=== PATIENT | male | born 1940 | race Caucasian/White ===

== ENCOUNTER 2016-06-27 10:30 | Emergency (ER) | payer MEDICARE ==
[2016-06-27 11:07] VITALS: BP 119/72
--- NOTE | 2016-06-27 11:39 | UC ---
Respiratory Complaint HPI - HPI Summary HPI Summary: Nasal congestion, cough, and trouble breathing starting last night. Pt used nebulizer once with partial relief. Usually only uses albuterol every few weeks. Denies fever or hx of hospitalization for pneumonia or asthma. - History of Current Complaint Chief Complaint: UCRespiratory Stated Complaint: SINUS COMPLAINT Time Seen by Provider: 06/27/16 11:15 Hx Obtained From: Patient Onset/Duration: Gradual Onset, Lasting Hours Timing: Constant Severity Initially: Mild Severity Currently: Mild Character: Cough: Nonproductive Aggravating Factors: Deep Breaths, Recumbent Position Alleviating Factors: Upright Position Associated Signs And Symptoms: Positive: Wheezing, URI, Nasal Congestion. Negative: Fever, Chills - Allergies/Home Medications Allergies/Adverse Reactions: Allergies Allergy/AdvReac Type Severity Reaction Status Date / Time Penicillins Allergy Nausea Verified 06/27/16 11:07 PMH/Surg Hx/FS Hx/Imm Hx Endocrine History Of: Denies: Diabetes, Thyroid Disease Cardiovascular History Of: Reports: Cardiac Disorders, Hypertension - WELL CONTOLLED Denies: Pacemaker/ICD Respiratory History Of: Reports: Asthma Denies: COPD GI/ History Of: Denies: Ulcer Psychological History Of: Reports: Depression - HX OF - Surgical History Surgical History: Yes Surgery Procedure, Year, and Place: PROSTATECTOMY 1994 [facility] – [place]. PENILE IMPLANT APPROX 1999 - Social History Occupation: Retired Lives: Alone Alcohol Use: Occasionally Substance Use Type: None Smoking Status (MU): Never Smoked Tobacco Review of Systems Constitutional: Negative Skin: Negative Eyes: Negative ENT: Nasal Discharge Respiratory: Shortness Of Breath, Cough Cardiovascular: Negative Gastrointestinal: Negative Genitourinary: Negative Motor: Negative Neurovascular: Negative Musculoskeletal: Negative Neurological: Negative Psychological: Negative All Other Systems Reviewed And Are Negative: Yes Physical Exam Triage Information Reviewed: Yes Appearance: Well-Appearing, No Pain Distress, Well-Nourished Vital Signs: Initial Vital Signs Temp 98.2 F 06/27/16 11:00 Pulse 70 06/27/16 11:00 Resp 20 06/27/16 11:00 BP 119/72 06/27/16 11:00 Pulse Ox 97 06/27/16 11:00 Vital Signs Reviewed: Yes Eye Exam: Normal Eyes: Positive: Conjunctiva Clear ENT: Positive: Pharynx normal, Nasal congestion, TMs normal. Negative: Tonsillar swelling, Tonsillar exudate Dental Exam: Other - dentures Neck exam: Normal Respiratory Exam: Normal Respiratory: Positive: Chest non-tender, Lungs clear, Normal breath sounds, No respiratory distress, No accessory muscle use Cardiovascular Exam: Normal Cardiovascular: Positive: RRR, No Murmur Musculoskeletal Exam: Normal Neurological Exam: Normal Psychological Exam: Normal Skin Exam: Normal UC Diagnostic Evaluation - Laboratory O2 Sat by Pulse Oximetry: 97 Respiratory Course/Dx - Differential Dx/Diagnosis Provider Diagnoses: URI, likely viral Discharge - Discharge Plan Condition: Stable Disposition: HOME Prescriptions: Albuterol HFA INHALER* [Ventolin HFA Inhaler*] 1 - 2 puff INH Q4H PRN #1 mdi PRN Reason: wheeze, cough Patient Education Materials: Upper Respiratory Infection (ED) Referrals: Caio Yadav MD [Primary Care Provider] - 4 Days Additional Instructions: Use either the albuterol inhaler or your nebulizer 4-5 times per day as needed. You may feel a bit worse for the next couple days since your illness just started. Please get seen again if you develop fever over 100.4, increasing trouble breathing (despite your albuterol), or any sudden or dramatic worsening.
== END 2016-06-27 11:46 | disposition home or self-care (01) ==
LOC: UCCORT 10:30
DX: J06.9 Acute upper respiratory infection, unspecified (principal); Z88.0 Allergy status to penicillin
CPT/HCPCS: 99212; G0463

== ENCOUNTER 2018-07-17 02:41 | Emergency (ER) | payer MEDICARE ==
[2018-07-17] MEDS ORDERED: NS 0.9% 1000 ML** 1,000 ML IV.FLUID IV ONE (03:34)
[2018-07-17] MEDS ORDERED: Acetaminophen TAB* 325 MG PO ONE (03:35)
[2018-07-17 04:46] LABS: ABS Basophils 0.1 10^3/ul (0-0.2); ABS Eosinophils 0 10^3/ul (0-0.6); ABS Lymphocytes 0.4 10^3/ul (1.0-4.8); ABS Monocytes 0.8 10^3/ul (0-0.8); ABS Nucleated RBC 0 10^3/ul; Eosinophil % 0.3 %; Hematocrit 43 % (42-52); Hemoglobin 14.2 g/dl (14.0-18.0); Lymphocyte % 6.8 %; Mean Corpuscular HGB Conc 33 g/dl (31-36); Mean Corpuscular Hemoglobin 30 pg (27-31); Mean Corpuscular Volume 90 fL (80-94); Mean Platelet Volume 9.8 fL (7.4-10.4); Nucleated Red Blood Cells % 0; Platelet Count 150 10^3/ul (150-450); Red Blood Count 4.78 10^6/ul (4.00-5.40); Red Cell Distribution Width 14 % (10.5-15); White Blood Count 6.2 10^3/ul (3.5-10.8)
[2018-07-17 04:53] LABS: INR 1.14 (0.77-1.02)
[2018-07-17 05:02] LABS: Albumin 3.8 g/dL (3.2-5.2); Albumin/Globulin Ratio 1.2 (1-3); BUN/Creatinine Ratio 13.6 (8-20); Calcium 9.2 mg/dL (8.6-10.3); EGFR African American 72.2 (>60); EGFR Non-African American 59.7 (>60); Globulin 3.1 g/dL (2-4); Total Bilirubin 0.9 mg/dL (0.2-1.0); Total Protein 6.9 g/dL (6.4-8.9)
[2018-07-17 05:05] LABS: Troponin I 0.02 ng/mL (<0.04)
--- NOTE | 2018-07-17 05:35 | ED ---
Respiratory - HPI Summary HPI Summary: The patient is a 78 y/o M presenting to [facility] with a chief complaint of upper respiratory symptoms since yesterday. He reports rhinorrhea, productive cough, mild fever, sore throat, and mild diffuse abd pain. He denies chills. His pain is rated 7/10 in severity. There are no aggravating or alleviating factors. He has hx of HTN, which is controlled by medication. He has FHx of diabetes. Nonsmoker. - History of Current Complaint Chief Complaint: EDUpperRespComplaint Stated Complaint: "I HAVE A SINUS INFECTION" PER PT Time Seen by Provider: 07/17/18 03:30 Hx Obtained From: Patient Onset/Duration: Sudden Onset, Lasting Hours - since yesterday, Still Present Initial Severity: Mild Current Severity: Moderate Pain Intensity: 7 Character: Cough (Productive) Sputum Amount: Moderate Aggravating Factor(s): Nothing Alleviating Factor(s): Nothing Associated Signs and Symptoms: Fever - mild, Sinus Discomfort - nasal discharge - Allergy/Home Medications Allergies/Adverse Reactions: Allergies Allergy/AdvReac Type Severity Reaction Status Date / Time MS Penicillins [Penicillins] Allergy Nausea Verified 06/27/16 11:07 PMH/Surg Hx/FS Hx/Imm Hx Endocrine/Hematology History: Denies: Hx Diabetes, Hx Thyroid Disease Cardiovascular History: Reports: Hx Hypertension - WELL CONTOLLED Denies: Hx Pacemaker/ICD Respiratory History: Reports: Hx Asthma Denies: Hx Chronic Obstructive Pulmonary Disease (COPD) GI History: Denies: Hx Ulcer Sensory History: Reports: Hx Contacts or Glasses - GLASSES Denies: Hx Hearing Aid Opthamlomology History: Reports: Hx Contacts or Glasses - GLASSES Psychiatric History: Reports: Hx Depression - HX OF Denies: Hx Panic Disorder - Cancer History Cancer Type, Location and Year: prostate - Surgical History Surgery Procedure, Year, and Place[place] [facility] [place] Hx Anesthesia Reactions: No Infectious Disease History: No Infectious Disease History: Denies: Hx Hepatitis, Hx Human Immunodeficiency Virus (HIV), Traveled Outside the [place] in Last 30 Days - Family History Known Family History: Positive: Hypertension Negative: Diabetes - Social History Alcohol Use: Occasionally Substance Use Type: Reports: None Smoking Status (MU): Never Smoked Tobacco Review of Systems Positive: Fever. Negative: Chills Positive: Sore Throat, Nasal Discharge Positive: Cough - productive Positive: Abdominal Pain All Other Systems Reviewed And Are Negative: Yes Physical Exam - Summary Physical Exam Summary: Appearance: Well-appearing, Well-nourished, lying in bed comfortably, low grade fever Skin: Warm, dry, no obvious rash Eyes: sclera anicteric, no conjunctival pallor ENT: mucous membranes moist, pharynx appears normal Neck: Supple, nontender Respiratory: Clear to auscultation, tachypnea Cardiovascular: Tachycardic. No murmurs. Normal distal pulses in tibial and radial bilaterally. Abdomen: Soft, nontender, normal active bowel sounds present Musculoskeletal: Normal, Strength/ROM Intact Neurological: A&Ox3, awake and alert, mentation is normal, speech is fluent and appropriate Psychiatric: affect is normal, does not appear anxious or depressed Triage Information Reviewed: Yes Vital Signs On Initial Exam: Initial Vitals Temp Pulse Resp BP Pulse Ox 100.3 F 109 18 163/89 94 07/17/18 02:44 07/17/18 02:44 07/17/18 02:44 07/17/18 02:44 07/17/18 02:44 Vital Signs Reviewed: Yes Diagnostics - Vital Signs Vital Signs Temp Pulse Resp BP Pulse Ox 07/17/18 02:44 100.3 F 109 18 163/89 94 - Laboratory Lab Results: Lab Results 07/17/18 07/17/18 07/17/18 Range/Units 04:36 04:36 04:36 WBC 6.2 (3.5-10.8) 10^3/ul RBC 4.78 (4.00-5.40) 10^6/ul Hgb 14.2 (14.0-18.0) g/dl Hct 43 (42-52) % MCV 90 (80-94) fL MCH 30 (27-31) pg MCHC 33 (31-36) g/dl RDW 14 (10.5-15) % Plt Count 150 (150-450) 10^3/ul MPV 9.8 (7.4-10.4) fL Neut % (Auto) 79.8 % Lymph % (Auto) 6.8 % Beaver % (Auto) 12.2 % Eos % (Auto) 0.3 % Baso % (Auto) 0.9 % Absolute Neuts (auto) 5.0 (1.5-7.7) 10^3/ul Absolute Lymphs (auto) 0.4 L (1.0-4.8) 10^3/ul Absolute Monos (auto) 0.8 (0-0.8) 10^3/ul Absolute Eos (auto) 0 (0-0.6) 10^3/ul Absolute Basos (auto) 0.1 (0-0.2) 10^3/ul Absolute Nucleated RBC 0 10^3/ul Nucleated RBC % 0 INR (Anticoag Therapy) 1.14 H (0.77-1.02) APTT 30.0 (26.0-36.3) seconds Sodium 138 (135-145) mmol/L Potassium 4.0 (3.5-5.0) mmol/L Chloride 106 (101-111) mmol/L Carbon Dioxide 26 (22-32) mmol/L Anion Gap 6 (2-11) mmol/L BUN 16 (6-24) mg/dL Creatinine 1.18 H (0.67-1.17) mg/dL Est GFR ( Amer) 72.2 (>60) Est GFR (Non-Af Amer) 59.7 (>60) BUN/Creatinine Ratio 13.6 (8-20) Glucose 102 H (70-100) mg/dL Lactic Acid (0.5-2.0) mmol/L Calcium 9.2 (8.6-10.3) mg/dL Total Bilirubin 0.90 (0.2-1.0) mg/dL AST 25 (13-39) U/L ALT 26 (7-52) U/L Alkaline Phosphatase 41 (34-104) U/L Troponin I 0.02 (<0.04) ng/mL Total Protein 6.9 (6.4-8.9) g/dL Albumin 3.8 (3.2-5.2) g/dL Globulin 3.1 (2-4) g/dL Albumin/Globulin Ratio 1.2 (1-3) 07/17/18 Range/Units 04:36 WBC (3.5-10.8) 10^3/ul RBC (4.00-5.40) 10^6/ul Hgb (14.0-18.0) g/dl Hct (42-52) % MCV (80-94) fL MCH (27-31) pg MCHC (31-36) g/dl RDW (10.5-15) % Plt Count (150-450) 10^3/ul MPV (7.4-10.4) fL Neut % (Auto) % Lymph % (Auto) % Beaver % (Auto) % Eos % (Auto) % Baso % (Auto) % Absolute Neuts (auto) (1.5-7.7) 10^3/ul Absolute Lymphs (auto) (1.0-4.8) 10^3/ul Absolute Monos (auto) (0-0.8) 10^3/ul Absolute Eos (auto) (0-0.6) 10^3/ul Absolute Basos (auto) (0-0.2) 10^3/ul Absolute Nucleated RBC 10^3/ul Nucleated RBC % INR (Anticoag Therapy) (0.77-1.02) APTT (26.0-36.3) seconds Sodium (135-145) mmol/L Potassium (3.5-5.0) mmol/L Chloride (101-111) mmol/L Carbon Dioxide (22-32) mmol/L Anion Gap (2-11) mmol/L BUN (6-24) mg/dL Creatinine (0.67-1.17) mg/dL Est GFR ( Amer) (>60) Est GFR (Non-Af Amer) (>60) BUN/Creatinine Ratio (8-20) Glucose (70-100) mg/dL Lactic Acid 1.5 (0.5-2.0) mmol/L Calcium (8.6-10.3) mg/dL Total Bilirubin (0.2-1.0) mg/dL AST (13-39) U/L ALT (7-52) U/L Alkaline Phosphatase (34-104) U/L Troponin I (<0.04) ng/mL Total Protein (6.4-8.9) g/dL Albumin (3.2-5.2) g/dL Globulin (2-4) g/dL Albumin/Globulin Ratio (1-3) Result Diagrams: 07/17/18 04:36 07/17/18 04:36 Lab Statement: Any lab studies that have been ordered have been reviewed, and results considered in the medical decision making process. - Radiology CXR Radiology Interpretation Completed By: Radiologist Summary of Radiographic Findings: No acute process. ED physician has reviewed this report. - EKG 0353 Cardiac Rate: NL - 98 BPM EKG Rhythm: Sinus Rhythm Summary of EKG Findings: NSR at 98BPM, P waves, QRS complex, and T waves are within normal limits, T waves and intervals are normal, no ischemic changes. This is a normal EKG. Re-Evaluation - Re-Evaluation First Eval Re-Evaluation Time: 05:00 Change: Improved Comment: I spoke with the patient concerning results and discharge home. Disposition - Course Course Of Treatment: The patient is a 78 y/o M with a chief complaint of upper respiratory symptoms since yesterday. He reports rhinorrhea, productive cough, mild fever, sore throat, and mild diffuse abd pain. He denies chills. Hx of HTN controlled by medication. The patient is a 78 y/o M presenting to [facility] with a chief complaint of upper respiratory symptoms since yesterday. He reports rhinorrhea, productive cough, mild fever, sore throat, and mild diffuse abd pain. He denies chills. His pain is rated 7/10 in severity. There are no aggravating or alleviating factors. He has hx of HTN, which is controlled by medication. EKG is normal. CXR reveals no acute process. He is diagnosed with acute bronchitis. He will be discharged home with prescription for Tussionex. He agrees with this plan and understands the need for return to the ED for any new or worsening symptoms. - Diagnoses Provider Diagnoses: Acute bronchitis Discharge - Sign-Out/Discharge Documenting (check all that apply): Patient Departure - Patient will be discharged home. Patient Received Moderate/Deep Sedation with Procedure: No - Discharge Plan Condition: Good Disposition: HOME Prescriptions: Azithromycin TAB* [Zithromax TAB (Z-GARCIA) 250 mg #6 tabs] 2 tab PO .TODAY, THEN 1 DAILY #1 garcia Hydrocodone/Chlorphen P-Stirex [Tussionex Pennkinetic Susp] 5 ml PO BID PRN #60 ml MDD 10 ml PRN Reason: Cough Patient Education Materials: Acute Bronchitis (ED) Referrals: Estrella De Oliveira [Primary Care Provider] - 1 Week (if not improving) - Billing Disposition and Condition Condition: GOOD Disposition: Home - Attestation Statements Document Initiated by Scribe: Yes Documenting Scribe: Mckenna Valenzuela Provider For Whom Kristopher is Documenting (Include Credential): Dr. Jian Mario MD Scribe Attestation: I, lópez Thorneed for Dr. Jian Mario MD on 07/18/18 at 0428. Scribe Documentation Reviewed: Yes Provider Attestation: The documentation as recorded by the Mckenna dawson accurately reflects the service I personally performed and the decisions made by me, Dr. Jian Mario MD Status of Scribe Document: Viewed
[2018-07-17 06:49] VITALS: BP 156/94
== END 2018-07-17 06:49 | disposition home or self-care (01) ==
LOC: ED 02:41
DX: J20.9 Acute bronchitis, unspecified (principal); R00.0 Tachycardia, unspecified; I10 Essential (primary) hypertension; Z88.0 Allergy status to penicillin
CPT/HCPCS: 36415; 71046; 80053; 83605; 84484; 85025; 85610; 85730; 87040; 93005; 96360; 96361; 99282; A9270-GY

== ENCOUNTER 2020-01-14 17:19 | Inpatient (IN) ==
[2020-01-14] MEDS ORDERED: NS 0.9% 1000 ml BAG 1,000 ML IV.FLUID IV ONE (17:28)
[2020-01-14] MEDS ORDERED: Cefepime 2 GM in Dextrose 2 GM/50 ML BAG IV ONE (18:02)
[2020-01-14] MEDS ORDERED: Ondansetron 4 mg VIAL 2 MG/ML 2 ml VIAL IV ONE (18:17)
[2020-01-14] MEDS ORDERED: Ondansetron 4 mg VIAL 2 MG/ML 2 ml VIAL ONE (18:19)
[2020-01-14 19:08] LABS: Hematocrit 45 % (42-52); Hemoglobin 15.3 g/dL (14.0-18.0); Mean Corpuscular HGB Conc 34 g/dL (31-36); Mean Corpuscular Hemoglobin 30 pg (27-31); Mean Corpuscular Volume 90 fL (80-94); Platelet Count 203 10^3/uL (150-450); Red Blood Count 5.07 10^6 /uL (4.18-5.48); Red Cell Distribution Width 15 % (10-15); Urine Appearance Clear; Urine Bilirubin Negative (Negative); Urine Blood 1+ (Negative); Urine Color Yellow; Urine Glucose Negative (Negative); Urine Ketones Negative (Negative); Urine Nitrite Negative (Negative); Urine Protein Negative (Negative); Urine Specific Gravity 1.017 (1.010-1.030); Urine Urobilinogen Negative (Negative); White Blood Count 14.2 10^3/uL (3.5-10.8)
[2020-01-14 19:09] LABS: Urine Bacteria Absent (Absent); Urine Red Blood Cell Trace(0-2/hpf) (Absent); Urine Squamous Epithelial Cell Present (Absent); Urine White Blood Cell Absent (Absent)
[2020-01-14 19:11] LABS: ABS Basophils 0.1 10^3/ul (0-0.2); ABS Lymphocytes 1.1 10^3/ul (1.0-4.8); ABS Neutrophils 12.4 10^3/ul (1.5-7.7); Lymphocyte % 7.2 %
[2020-01-14 19:18] LABS: Influenza A Molecular Negative (Negative); Influenza B Molecular Negative (Negative)
[2020-01-14 19:24] LABS: Troponin I 0.02 ng/mL (<0.03)
[2020-01-14 19:35] LABS: ALT 32 U/L (7-52); Albumin 4.3 g/dL (3.2-5.2); Albumin/Globulin Ratio 1.3 (1-3); Alkaline Phosphatase 42 U/L (34-104); BUN/Creatinine Ratio 16.4 (8-20); Blood Urea Nitrogen 22 mg/dL (6-24); C Reactive Protein 33.37 mg/L (<8.01); CO2 Carbon Dioxide 27 mmol/L (22-32); Calcium 10.2 mg/dL (8.6-10.3); Chloride 100 mmol/L (101-111); Creatine Kinase 149 U/L (10-223); EGFR African American 62.2 (>60); EGFR Non-African American 51.4 (>60); Globulin 3.2 g/dL (2-4); Glucose 131 mg/dL (70-100); Sodium 138 mmol/L (135-145); Total Protein 7.5 g/dL (6.4-8.9)
[2020-01-14] MEDS ORDERED: NS 0.9% 1000 ml BAG 1,000 ML IV ONE (19:45)
[2020-01-14 20:26] LABS: Anion Gap 11 mmol/L (2-11)
[2020-01-14 20:33] LABS: Activated Partial Thrombo Time 27.4 seconds (26.0-38.0); INR 1.24 (0.82-1.09)
[2020-01-14] MEDS ORDERED: Ondansetron 4 mg VIAL 2 MG/ML 2 ml VIAL IV PRN (20:57)
[2020-01-14] MEDS ORDERED: NS 0.9% 1000 ml BAG 1,000 ML IV SCH (21:00)
[2020-01-14 22:17] LABS: Erythrocyte Sed Rate 38 mm/Hr (0-19)
[2020-01-14] MEDS: CMCS: Simvastatin 20 mg TAB (NF) PO SCH (22:57)
[2020-01-14] MEDS: Enoxaparin 40 MG/0.4 ML SYR SUBCUT SCH (22:57)
[2020-01-14] MEDS: Azithromycin 500 mg/250 ml NS 500 MG/250 ML BAG IVPB SCH (22:58)
[2020-01-14 23:07] LABS: Potassium Redraw 2.9 mmol/L (3.5-5.0)
[2020-01-15] MEDS ORDERED: Potassium Chlor 20 meq TAB.ER PO ONE (03:10)
[2020-01-15] MEDS: cefTRIAXone 1 gm/50 mL NS BAG 1 GM/50 ML BAG IVPB SCH (06:10)
[2020-01-15] MEDS: KCL 20 MEQ/100 ML IVPREMIX 20 MEQ/100 ML BAG IV SCH ×3 (08:02→12:17)
[2020-01-15 12:11] LABS: ABS Lymphocytes 0.7 10^3/ul (1.0-4.8); ABS Monocytes 1.2 10^3/ul (0-0.8); ABS Neutrophils 12.7 10^3/ul (1.5-7.7); Hematocrit 38 % (42-52); Hemoglobin 12.9 g/dL (14.0-18.0); Lymphocyte % 5.1 %; Mean Corpuscular HGB Conc 34 g/dL (31-36); Mean Corpuscular Hemoglobin 31 pg (27-31); Mean Corpuscular Volume 90 fL (80-94); Mean Platelet Volume 9.9 fL (7.4-10.4); Platelet Count 119 10^3/uL (150-450); Red Blood Count 4.24 10^6 /uL (4.18-5.48); Red Cell Distribution Width 15 % (10-15); White Blood Count 14.7 10^3/uL (3.5-10.8)
[2020-01-15] MEDS ORDERED: NS 0.9% 1000 ml BAG 1,000 ML IV SCH (12:16)
[2020-01-15 12:27] LABS: BUN/Creatinine Ratio 20.3 (8-20); Calcium 8.8 mg/dL (8.6-10.3); EGFR African American 60.1 (>60); EGFR Non-African American 49.7 (>60); Potassium 3.5 mmol/L (3.5-5.0)
[2020-01-15] MEDS: Enoxaparin 40 MG/0.4 ML SYR SUBCUT SCH (21:01)
[2020-01-15] MEDS: Senna TAB 8.6 mg TAB PO PRN (21:01)
[2020-01-15] MEDS: CMCS: Simvastatin 20 mg TAB (NF) PO SCH (22:09)
[2020-01-15] MEDS: Azithromycin 500 mg/250 ml NS 500 MG/250 ML BAG IVPB SCH (22:11)
[2020-01-16] MEDS: cefTRIAXone 1 gm/50 mL NS BAG 1 GM/50 ML BAG IVPB SCH (06:02)
[2020-01-16 06:42] LABS: Hematocrit 36 % (42-52); Hemoglobin 12.6 g/dL (14.0-18.0); Mean Corpuscular HGB Conc 35 g/dL (31-36); Mean Corpuscular Hemoglobin 31 pg (27-31); Mean Corpuscular Volume 89 fL (80-94); Mean Platelet Volume 9.9 fL (7.4-10.4); Platelet Count 115 10^3/uL (150-450); Red Blood Count 4.08 10^6 /uL (4.18-5.48); Red Cell Distribution Width 15 % (10-15); White Blood Count 8.1 10^3/uL (3.5-10.8)
[2020-01-16 07:03] LABS: BUN/Creatinine Ratio 22.9 (8-20); Calcium 8.6 mg/dL (8.6-10.3); EGFR Non-African American 65.3 (>60); Potassium 3.3 mmol/L (3.5-5.0)
[2020-01-16] MEDS ORDERED: Potassium Chlor 20 meq TAB.ER PO ONE (07:31)
[2020-01-16] MEDS ORDERED: Influenza VAC *QUAD* 2020-21* 0.5 ML SYRINGE IM ONE (09:00)
[2020-01-16] MEDS: Azithromycin 500 mg/250 ml NS 500 MG/250 ML BAG IVPB SCH (21:25)
[2020-01-16] MEDS: CMCS: Simvastatin 20 mg TAB (NF) PO SCH (21:31)
[2020-01-16] MEDS: Enoxaparin 40 MG/0.4 ML SYR SUBCUT SCH (21:32)
[2020-01-17] MEDS: cefTRIAXone 1 gm/50 mL NS BAG 1 GM/50 ML BAG IVPB SCH (05:50)
[2020-01-17 08:47] LABS: Calcium 8.9 mg/dL (8.6-10.3); EGFR African American 87.2 (>60); EGFR Non-African American 72.1 (>60); Potassium 3.5 mmol/L (3.5-5.0)
[2020-01-17] MEDS: Senna TAB 8.6 mg TAB PO PRN (17:06)
[2020-01-17] MEDS ORDERED: Magnesium Hydroxide LIQ 30 ML UDC PO ONE (20:00)
[2020-01-17] MEDS: CMCS: Simvastatin 20 mg TAB (NF) PO SCH (20:27)
[2020-01-17] MEDS: Enoxaparin 40 MG/0.4 ML SYR SUBCUT SCH (20:27)
[2020-01-18] MEDS: Albuterol/Ipratropium NEB.SOL (2.5/0.5 MG) 3 ML NEB.SOLN INH PRN ×2 (00:02→07:46)
[2020-01-18] MEDS: cefTRIAXone 1 gm/50 mL NS BAG 1 GM/50 ML BAG IVPB SCH (06:32)
[2020-01-18] MEDS: Senna TAB 8.6 mg TAB PO PRN (08:17)
[2020-01-18] MEDS: Mometasone/Formoter 100/5 MDI INH SCH ×2 (14:04→19:33)
[2020-01-18] MEDS: CMCS: Simvastatin 20 mg TAB (NF) PO SCH (21:45)
[2020-01-18] MEDS: Enoxaparin 40 MG/0.4 ML SYR SUBCUT SCH (21:45)
[2020-01-19] MEDS: cefTRIAXone 1 gm/50 mL NS BAG 1 GM/50 ML BAG IVPB SCH (06:18)
[2020-01-19] MEDS: Albuterol/Ipratropium NEB.SOL (2.5/0.5 MG) 3 ML NEB.SOLN INH PRN (08:29)
[2020-01-19] MEDS: Mometasone/Formoter 100/5 MDI INH SCH ×2 (08:30→19:45)
[2020-01-19 10:04] LABS: BUN/Creatinine Ratio 13.9 (8-20); Calcium 9.8 mg/dL (8.6-10.3); EGFR African American 86.2 (>60); EGFR Non-African American 71.3 (>60)
[2020-01-19 13:16] LABS: Hematocrit 38 % (42-52); Hemoglobin 12.6 g/dL (14.0-18.0); Mean Corpuscular HGB Conc 34 g/dL (31-36); Mean Corpuscular Hemoglobin 30 pg (27-31); Mean Corpuscular Volume 91 fL (80-94); Mean Platelet Volume 9.6 fL (7.4-10.4); Platelet Count 157 10^3/uL (150-450); Red Blood Count 4.14 10^6 /uL (4.18-5.48); Red Cell Distribution Width 15 % (10-15); White Blood Count 5.7 10^3/uL (3.5-10.8)
[2020-01-19] MEDS: Enoxaparin 40 MG/0.4 ML SYR SUBCUT SCH (20:41)
[2020-01-19] MEDS: CMCS: Simvastatin 20 mg TAB (NF) PO SCH (20:41)
[2020-01-20] MEDS: cefTRIAXone 1 gm/50 mL NS BAG 1 GM/50 ML BAG IVPB SCH (05:17)
[2020-01-20] MEDS: Mometasone/Formoter 100/5 MDI INH SCH (08:17)
[2020-01-20] MEDS ORDERED: Midazolam 5 mg/5 ml VIAL 1 mg/ml 5 ml VIAL (5 mg) ONE (10:14)
[2020-01-20] MEDS ORDERED: fentaNYL 100 mcg/2 ml 50 MCG/ML VIAL ONE (10:15)
[2020-01-20] MEDS ORDERED: Flumazenil 0.5 mg/5 ml 0.1 MG/ML 5 ml VIAL ONE (10:15)
[2020-01-20] MEDS ORDERED: Naloxone 0.4 mg VIAL 0.4 mg/ml 1 ml VIAL ONE (10:15)
[2020-01-20 13:30] LABS: C Reactive Protein 18.24 mg/L (<8.01)
[2020-01-20 17:07] VITALS: BP 153/74
== END 2020-01-20 17:50 | disposition home or self-care (01) | DRG 872 ==
LOC: ED 17:19 → MED 20:49
PROVIDERS: ADMIT Hospitalist; ATTEND Internal Medicine